=== PATIENT | male | born 1975 | race African-American/Black ===

== ENCOUNTER 2019-09-23 17:34 | Emergency (ER) | payer OTHER ==
[2019-09-23 17:41] VITALS: BP 129/80; PULSE 63; TEMP 97.9; BMI 34.9
--- NOTE | 2019-09-23 17:42 | PDOC ---
Rapid Medical Evaluation Time Seen by Provider: 09/23/19 17:39 Medical Evaluation: Allergies Allergy/AdvReac Type Severity Reaction Status Date / Time Penicillins Allergy Verified 09/23/19 17:38 09/23/19 17:40 Pt c/o: fell an d hit head yesterday. worsening headache since injury, no loc, on no blood thinners Pt on brief exam: vss, perrl, ambulatory Pt ordered for: head ct Pt to proceed to the ED Discharge Disposition - Diagnosis Head injury - Referrals - Patient Instructions - Post Discharge Activity
[2019-09-23] MEDS ORDERED: ONDANSETRON *ODT* 4 MG TABLET SL ONE (18:59)
--- NOTE | 2019-09-23 19:01 | PDOC ---
History of Present Illness - General Chief Complaint: Injury Stated Complaint: FALL/ HIT HEAD Time Seen by Provider: 09/23/19 17:39 History Source: Patient - History of Present Illness Initial Comments: 09/23/19 19:14 Chief complaint: Head injury Patient is a healthy 44-year-old male who hit his head at 4 AM yesterday when he slipped on the ice. Patient denies LOC. Patient states that he is continued to have a headache, and he had some nausea today. Patient is not on any kind of medicine including anticoagulation or antiplatelet therapy. Headache is better since he received medication here. GENERAL/CONSTITUTIONAL: No fever, weakness. dizziness HEAD, EYES, EARS, NOSE AND THROAT: No change in vision. No ear pain or discharge. No sore throat. CARDIOVASCULAR: No chest pain RESPIRATORY: No shortness of breath or cough GASTROINTESTINAL: No pain, +nausea, no: Vomiting, diarrhea or constipation GENITOURINARY: No dysuria MUSCULOSKELETAL: No neck or back pain SKIN: No rash NEUROLOGIC: +headache, no: Vertigo, loss of consciousness, or loss of sensation. GENERAL: The patient is awake, alert, and fully oriented, in no acute distress. HEAD: Normal with no signs of trauma. EYES: Pupils equal, round and reactive to light, sclera anicteric, conjunctiva clear. EOMs intact ENT: pharynx: no erythema, no exudate, uvula midline NECK: supple CHEST: clear, nontender, rr ABD: soft, nontender BACK: no tenderness or signs of injury EXTREMITIES: Normal range of motion, no edema. NEUROLOGICAL: Normal speech, normal gait. Cranial nerves II through XII grossly intact, no gross focal abnormalities SKIN: Warm, Dry Past History - Past Medical History Allergies/Adverse Reactions: Allergies Allergy/AdvReac Type Severity Reaction Status Date / Time Penicillins Allergy Verified 09/23/19 17:38 Home Medications: Ambulatory Orders NK [No Known Home Medication] 09/23/19 COPD: No - Psycho Social/Smoking Cessation Hx Smoking History: Never smoked *Physical Exam - Vital Signs Last Vital Signs Temp Pulse Resp BP Pulse Ox 97.9 F 63 18 129/80 99 09/23/19 17:39 09/23/19 17:39 09/23/19 17:39 09/23/19 17:39 09/23/19 17:39 Medical Decision Making - Medical Decision Making 09/23/19 19:15 44-year-old healthy male who hit his head on the ground when he slipped on ice over 24 hours ago continues with headache and nausea. Patient is neurologically intact, no big hematoma. Head CT was ordered from triage, it was done prior to evaluation of patient and it was negative. Patient's headache is getting better since he got medicine from triage, he has a little nausea. Patient has postconcussive symptoms. This was fully explained to patient. Patient will be given 1 dose of Zofran in the ER. Patient is ambulating very well and is very comfortable. No further work-up or evaluation needed in the ER. Discussed issues, findings, results, applicable medications and treatments and follow-up. All these were understood and all questions were answered Discharge - Discharge Information Problems reviewed: Yes Clinical Impression/Diagnosis: Concussion Qualifiers: Encounter type: initial encounter Loss of consciousness presence/duration: without LOC Qualified Code(s): S06.0X0A - Concussion without loss of consciousness, initial encounter Condition: Stable Disposition: HOME - Admission No - Follow up/Referral Referrals: Krishna Tan MD [Primary Care Provider] - - Patient Discharge Instructions Patient Printed Discharge Instructions: DI for Postconcussion Syndrome Additional Instructions: Return to the nearest ER if worsening headache, nausea, vomiting, unsteady or worsening symptoms. You can take Tylenol every 4 hours for headache. 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 Followup with your doctor as instructed - Post Discharge Activity
[2019-09-23] MEDS ORDERED: ONDANSETRON *ODT* 4 MG TABLET ONE (19:08)
== END 2019-09-23 19:34 | disposition home or self-care (01) ==
LOC: JERFT 17:34
CPT/HCPCS: 70450-TC; 99282-25; Q0162